=== PATIENT | male | born 1985 | race Caucasian/White ===

== ENCOUNTER 2023-01-10 04:07 | Emergency (ER) | payer SELFPAY ==
[2023-01-10] VITALS (15 sets, daily range): BP systolic 131–148; BP diastolic 93–116; PULSE 79–99; RESP 18; TEMP 36.1; O2SAT 96–100
--- NOTE | 2023-01-10 04:25 | CRLHL7_ITS ---
For Patients: As a result of the Cures Act, medical imaging exams and procedure reports are released immediately into your electronic medical record. You may view this report before your referring provider. If you have questions, please contact your health care provider. INDICATION: Facial injury. TECHNIQUE: CT maxillofacial without contrast. COMPARISON: None. FINDINGS: Facial bones: Bilateral comminuted nasal bone fractures and displaced fractures of the frontal processes of the maxillae. Associated asymmetrical superficial soft tissue hemorrhage and soft tissue emphysema. Nondisplaced fracture of the nasal septum (series 3; image 115). Orbits and globes: Unremarkable. Globes are intact. No sign of intraorbital hemorrhage or emphysema. Sinuses: Underpneumatized frontal sinuses. Round sclerotic focus in the midline of the frontal sinuses consistent with an osteoma. Right frontal recess opacification. Bilateral ethmoid, sphenoid and maxillary sinus mild mucosal thickening. The right anterior sphenoid sinus retention cyst. 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 Periapical lucencies of the right 2nd and 3rd mandibular molar is and left 1st mandibular molar are consistent with periodontitis. IMPRESSION: Bilateral comminuted nasal bone fractures and displaced fractures of the frontal processes of the maxillae. Associated asymmetrical superficial soft tissue hemorrhage and soft tissue emphysema. Nondisplaced fracture of the nasal septum (series 3; image 115). Incidental findings described above. Please note that all CT scans at this facility use dose modulation, iterative reconstruction, and/or weight-based dosing when appropriate to reduce radiation dose to as low as reasonably achievable. Dictated by Charles Rosa MD @ 01/10/2023 5:43:55 AM (Electronically Signed)
--- NOTE | 2023-01-10 04:25 | CRLHL7_ITS ---
For Patients: As a result of the Cures Act, medical imaging exams and procedure reports are released immediately into your electronic medical record. You may view this report before your referring provider. If you have questions, please contact your health care provider. INDICATION: Fall. TECHNIQUE: CT cervical spine without contrast. COMPARISON: None. FINDINGS: Vertebrae: Alignment is normal. There are no fractures or suspicious bony lesions. Small intraosseous pneumatocysts are noted in the C3 and C4 vertebral bodies. These findings are not considered to be clinically significant. Discs and facet joints: Disc spaces and facets are within normal limits. Extraspinal findings: Biapical emphysema. IMPRESSION: No acute traumatic injury of the cervical spine is identified. Please note that all CT scans at this facility use dose modulation, iterative reconstruction, and/or weight-based dosing when appropriate to reduce radiation dose to as low as reasonably achievable. Dictated by Charles Rosa MD @ 01/10/2023 5:48:49 AM (Electronically Signed)
--- NOTE | 2023-01-10 04:25 | CRLHL7_ITS ---
For Patients: As a result of the Cures Act, medical imaging exams and procedure reports are released immediately into your electronic medical record. You may view this report before your referring provider. If you have questions, please contact your health care provider. INDICATION: . TECHNIQUE: CT head without contrast. COMPARISON: None. FINDINGS: Incidental circumscribed lobulated focal fat in the suprasellar cistern is consistent with a dermoid. No intracranial hemorrhage, mass or hydrocephalus. No acute cortical infarct. Bilateral comminuted nasal bone fractures and displaced fractures of the frontal processes of the maxillae. Associated asymmetrical superficial soft tissue hemorrhage and soft tissue emphysema. Midline frontal sinus osteoma. Sphenoid sinus retention cyst. Mild mucosal thickening of the sphenoid sinus and bilateral maxillary sinuses. IMPRESSION: Bilateral comminuted nasal bone fractures and displaced fractures of the frontal processes of the maxillae. Associated asymmetrical superficial soft tissue hemorrhage and soft tissue emphysema. Incidental findings described above. Please note that all CT scans at this facility use dose modulation, iterative reconstruction, and/or weight-based dosing when appropriate to reduce radiation dose to as low as reasonably achievable. Dictated by Charles Rosa MD @ 01/10/2023 5:38:02 AM (Electronically Signed)
--- NOTE | 2023-01-10 04:30 | ED_ITS ---
HPI - General Adult General Chief complaint: Fall/Minor Trauma Stated complaint: fall, face laceration Time Seen by Provider: 01/10/23 04:20 Source: patient and family Mode of arrival: ambulatory Limitations: altered mental status (Intoxication) History of Present Illness HPI narrative: 37-year-old male presents the emergency department with significant other, brought in by private car. She woke at 3:00 a.m. to the sound of him moaning on the floor, conscious. They were drinking alcohol at home tonight. She believes that he fell and hit his head on the dresser but does not know what time. There was fresh blood around him. She notice a facial laceration. He is slurring his words but he had been drinking. She helped him up and brought him to the emergency department. He denies any other substances besides alcohol tonight. No fevers or recent illness. He does not remember what time he fell but does recall hitting his face on the dresser. He thinks he may have tripped over the cat or another object. He does not take any blood thinners or anticoagulants, no history of seizures. He notes pain in the neck, left mid face area. No other affected areas. Past medical history benign per his report, no major long-term health problems. No long-term medications or allergies. Alcohol intake tonight but no other drugs. ROS notable for the neck pain, facial injury and intoxication as above. Related Data Allergies Allergy/AdvReac Type Severity Reaction Status Date / Time Penicillins Allergy Severe Verified 01/10/23 04:34 [facility] Social History How often do you have a drink containing alcohol: 2-4 times a month AUDIT-C Alcohol total score: 2 Exam Const: Vital Signs, click to edit/add: Vital Signs - 24 hr 01/10/23 04:15 01/10/23 04:48 01/10/23 04:50 Temperature 97.0 F L Pulse Rate 83 89 Pulse Rate [Left P ulse Oximeter] 90 Respiratory Rate 18 Blood Pressure Blood Pressure [Ri ght Upper Arm] 148/116 H Pulse Oximetry 98 100 99 Oxygen Delivery Me thod Room Air 01/10/23 04:52 01/10/23 04:53 01/10/23 05:00 Temperature Pulse Rate 88 85 83 Pulse Rate [Left P ulse Oximeter] Respiratory Rate Blood Pressure 147/111 H Blood Pressure [Ri ght Upper Arm] Pulse Oximetry 99 99 100 Oxygen Delivery Me thod 01/10/23 05:02 01/10/23 05:10 01/10/23 05:12 Temperature Pulse Rate 79 99 86 Pulse Rate [Left P ulse Oximeter] Respiratory Rate Blood Pressure 141/111 H 142/103 H Blood Pressure [Ri ght Upper Arm] Pulse Oximetry 100 96 98 Oxygen Delivery Me thod 01/10/23 05:20 01/10/23 05:21 01/10/23 05:30 Temperature Pulse Rate 89 84 86 Pulse Rate [Left P ulse Oximeter] Respiratory Rate Blood Pressure 138/100 H Blood Pressure [Ri ght Upper Arm] Pulse Oximetry 98 99 98 Oxygen Delivery Me thod 01/10/23 05:32 01/10/23 05:40 01/10/23 05:41 Temperature Pulse Rate 88 87 87 Pulse Rate [Left P ulse Oximeter] Respiratory Rate Blood Pressure 133/93 H 131/94 H Blood Pressure [Ri ght Upper Arm] Pulse Oximetry 97 98 98 Oxygen Delivery Me thod Documenting provider has reviewed patient's vital signs: yes Other: Intoxicated, oriented to person place and situation though. GCS 15. Slight slurring of words, story is reproducible. Obvious swelling to left nasal labial fold and maxillary area. HENMT: Other: Facial swelling and laceration to left nose/maxillary area. Can open and close jaw normally. Fractured front tooth appears chronic. No signs of tongue biting. Normal oral mucosa. Mandible intact. No blood behind TMs. Eye: Common normals: PERRL, EOMs intact bilaterally and conjunctivae normal General eye: normal appearance of both eyes Conjunctiva: conjunctiva(e) normal Pupil: PERRL Neck & C-Spine: Other: C-collar placed. Does report tenderness along C3 and 4, right greater than left. No obvious deformity or step-off. Chest: Common normals: inspection of chest normal Resp: Common normals: normal respiratory effort, no use of accessory muscles and clear to auscultation bilaterally Effort & inspection: able to speak in complete sentences Auscultation: clear to auscultation bilaterally Cardio: Common normals: regular rate, regular rhythm, S1 normal heart sound, S2 normal heart sound and no murmurs Rate: regular rate Rhythm: regular rhythm Heart sounds: S1 normal and S2 normal GI: Common normals: Normal to inspection, nondistended, normoactive bowel sounds present, soft to palpation, non-tender, no hepatosplenomegaly and no masses Palpation: soft and no hepatosplenomegaly Back & Pelvis: Common normals: thoracic and lumbar spine normal to inspection and no thoracic nor lumbar tenderness Extremity: Common normals: normal to inspection, full ROM and normal capillary refill General: normal exam except as noted Neuro: Other: Speech slurred but GCS 15. Moves all extremities easily and symmetrically on command. No obvious deficit. Psych: Other: Cooperative, seems mildly intoxicated. Skin: Narrative: 6 cm curved laceration left nasal and ch [place] area Course Course ED Course: Concern with significant facial injury, potential cervical spine injury. Moving all extremities and not reporting any deficits is only somewhat reassuring in his intoxicated state. C-collar is placed. I do think that we can initially workup his trauma here. CT scan of the head, facial bone, cervical spine. Basic labs including alcohol level. Will withhold giving any pain medication until the CTs are back as I do not want to impair his neurological status. He will need repair of the laceration as part of his ED treatment as well, deferring to other more potentially dangerous potential injuries 1st. Reevaluation(s) Time of Reevaluation #1: 06:49 Reevaluation #1: Examined wound, signs of oozing noted. Superficial laceration is cleansed with Hibiclens did re-examine. Wound is on the left nasal bridge and nares area but is through the dermis only, not deeper tissues. It does not connect to the nasal cavity. No air movement or bubbling noted. Once it was washed, the actual length is only 3 cm. Originally I thought it was longer but I was seeing blood tracking deeply in the nasal labial fold which I thought was an extension of the laceration. It reapproximate very easily with gentle manipulation. Because of this I recommended Steri-Strips rather than suture for cosmetic outcome. He and significant other were agreeable to this. Procedure laceration repair: After cleansing with Hibiclens, proper examination of wound, ensuring that there was no evidence of foreign body, Steri-Strips were applied with good wound reapproximation. There is still some very mild oozing from 1 edge but almost completely hemostatic. Instructed on care. I also spoke with [facility], ENT provider, Dr. Crisostomo. He was kind enough to go over the report with me and agree that patient does not need transfer. He recommends outpatient ENT follow-up. Even with the small superficial laceration, it does not need antibiotic management. These recommendations were relayed to patient and his significant other. Patient is reporting that he has feeling fairly well. CT findings were reviewed. C-collar is removed. He can answer questions, is mentating well, moving all extremities easily and has no further questions at this time. Discussed that I would like him off of work for the next 3 days, discussed signs and symptoms of head injury and concussion. Rest. Tylenol and ibuprofen as needed for pain. Limited supply of hydrocodone will be given for more severe nocturnal pain only. His girlfriend is a nurse and can stay with him today to help monitor. All questions answered. Alarm symptoms reviewed. 20 minutes spent in critical care time today, trauma team activation. Vital Signs Vital signs: Initial Vital Signs Temperature 97.0 F L 01/10/23 04:15 Temperature Source Temporal Artery Scan 01/10/23 04:15 Pulse Rate 90 01/10/23 04:15 Pulse Rhythm Regular 01/10/23 04:15 Respiratory Rate 18 01/10/23 04:15 Blood Pressure 148/116 H 01/10/23 04:15 Blood Pressure Mean 126 H 01/10/23 04:15 Blood Pressure Position Semi-Fowlers 01/10/23 04:15 Pulse Oximetry 98 01/10/23 04:15 Oxygen Delivery Method Room Air 01/10/23 04:15 Vital Signs Temperature 97.0 F L 01/10/23 04:15 Pulse Rate 90 01/10/23 04:15 Respiratory Rate 18 01/10/23 04:15 Blood Pressure 148/116 H 01/10/23 04:15 Pulse Oximetry 98 01/10/23 04:15 Oxygen Delivery Method Room Air 01/10/23 04:15 Temperature 97.0 F L 01/10/23 04:15 Pulse Rate 87 01/10/23 05:41 Respiratory Rate 18 01/10/23 04:15 Blood Pressure 131/94 H 01/10/23 05:41 Pulse Oximetry 98 09/08/23 05:41 Oxygen Delivery Method Room Air 01/10/23 04:15 Medical Decision Making Lab Data Lab results reviewed: Yes I reviewed the patient's lab results Labs: Lab Results 01/10/23 Range/Units 04:25 WBC 5.91 (4.50-11.00) K/uL RBC 4.73 (4.30-5.90) m/uL Hgb 15.5 (13.5-17.5) gm/dL Hct 46.7 (37.0-53.0) % MCV 99 (80-100) fL MCH 33 (26-34) pg MCHC 33 (32-36) gm/dL RDW Coeff of Messi 12.3 (11.5-15.5) % Plt Count 203 (140-440) K/uL Neut % (Auto) 53.3 (42.0-72.0) % Lymph % (Auto) 32.3 (20-44) % [place] % (Auto) 6.9 (0.0-11.0) % Eos % (Auto) 6.8 (0.0-7.0) % Baso % (Auto) 0.5 (0.0-3.0) % Neut # (Auto) 3.15 (1.7-7.0) K/uL Lymph # (Auto) 1.91 (0.90-2.90) K/uL [place] # (Auto) 0.40 (0.00-0.90) K/UL Eos # (Auto) 0.40 (0.00-0.50) K/uL Baso # (Auto) 0.03 (0.00-0.30) K/uL Abs Immat Gran (auto) 0.01 (0.00-0.30) K/uL Imm/Tot Granulo (auto) 0.2 % Sodium 142 (135-149) mmol/L Potassium 3.8 (3.6-5.1) mmol/L Chloride 105 (96-114) mmol/L Carbon Dioxide 23 (20-32) mmol/L Anion Gap 14 (7-15) mEq/L BUN 14 (5-24) mg/dL Creatinine 0.8 (0.5-1.5) mg/dL Estimated GFR 117 ml/min Glucose 92 (60-115) mg/dL Calcium 9.9 (8.4-10.6) mg/dL Ethyl Alcohol 0.16 H (0.01-0.03) % POC Troponin I 0.00 L (0.01-0.04) ng/ml Imaging Data Facial CT: Attestation: I have reviewed the pertinent imaging results. My impression: Nasal and maxillary fracture Radiologist's impression: IMPRESSION: Bilateral comminuted nasal bone fractures and displaced fractures of the frontal processes of the maxillae. Associated asymmetrical superficial soft tissue hemorrhage and soft tissue emphysema. Incidental findings described above. CT scan - head: Attestation: I have reviewed the pertinent imaging results. My impression: No skull fracture head bleed. Facial fractures noted on facial CT Radiologist's impression: IMPRESSION: Bilateral comminuted nasal bone fractures and displaced fractures of the frontal processes of the maxillae. Associated asymmetrical superficial soft tissue hemorrhage and soft tissue emphysema. Incidental findings described above. CT- Other: Attestation: I have reviewed the pertinent imaging results. My impression: No cervical spine fracture Radiologist's impression: IMPRESSION: No acute traumatic injury of the cervical spine is identified. ECG Data Attestation: I personally reviewed and interpreted this ECG as follows: Prior ECG tracings: not available for review Interpretation: normal sinus rhythm, rate 87 normal axis. Good R-wave progression. No significant ST or T-wave abnormalities. Normal EKG Discharge Plan Discharge Clinical Impression: Closed fracture nasal bone, Concussion, Facial fracture Patient Disposition: Home w/ Parent or Adult Condition: Stable Instructions: Nasal Fracture (ED), Concussion (ED) Additional Instructions: As we discussed, you have fractures of your nose and cheek bone. These do not need to be set and you do not need antibiotics. I would like for you to follow- up with the ear nose and throat provider in a week or 2 to make sure things are healing properly. If things are not setting as they should, they will discuss surgery. Your likely to have symptoms of head injury evolve over the next 24 hours. This usually consists of dizziness, fatigue, headache, irritability and mental fogginess. It is important that you rest for the next 3 days. Because of the nasal fractures, You cannot blow your nose for at least a week. If you are still not feeling back to baseline by Friday, I would recommend a follow-up in the clinic and not going to work. The ear nose and throat clinic office will call you to schedule a follow-up. Come back to the emergency department and or call 911 if you experience loss of consciousness, seizures, persistent vomiting. Someone should stay with you today to help monitor your symptoms. For pain take Tylenol 1000 mg every 6 hours as needed and or ibuprofen 600 mg every 6 hours as needed. I will also give you a limited supply of hydrocodone to use if the pain is severe but try to use these sparingly or even not at all. It is okay to gently apply ice. The nasal wound may continue to ooze slightly but should not have heavy bleeding. Activity Level: Light activity Discharge Diet: Regular Follow Up/Referrals: Provider,Not a Local [Primary Care Provider] - Stand Alone Forms: [employer] Info Instructions
[2023-01-10 04:34] LABS: Basophils Absolute Auto 0.03 K/uL (0.00-0.30); Basophils Percent Auto 0.5 % (0.0-3.0); Eosinophils Percent Auto 6.8 % (0.0-7.0); Hematocrit 46.7 % (37.0-53.0); Hemoglobin* 15.5 gm/dL (13.5-17.5); Immature Granulocytes Abs Auto 0.01 K/uL (0.00-0.30); Immature Granulocytes Pct Auto 0.2 %; Lymphocytes Absolute Auto 1.91 K/uL (0.90-2.90); Lymphocytes Percent Auto 32.3 % (20-44); Mean Corpuscular HGB Conc 33 gm/dL (32-36); Mean Corpuscular Hemoglobin 33 pg (26-34); Mean Corpuscular Volume 99 fL (80-100); Monocytes Percent Auto 6.9 % (0.0-11.0); Neutrophils Absolute Auto 3.15 K/uL (1.7-7.0); Neutrophils Percent Auto 53.3 % (42.0-72.0); Platelet Count* 203 K/uL (140-440); RDW Coefficient of Variation % 12.3 % (11.5-15.5); Red Blood Count 4.73 m/uL (4.30-5.90); White Blood Count* 5.91 K/uL (4.50-11.00)
[2023-01-10 04:35] LABS: Slide Review Reflex No
[2023-01-10 04:55] LABS: Chloride* 105 mmol/L (96-114); Potassium* 3.8 mmol/L (3.6-5.1); Sodium* 142 mmol/L (135-149)
[2023-01-10 04:58] LABS: Blood Urea Nitrogen* 14 mg/dL (5-24); Carbon Dioxide* 23 mmol/L (20-32); Creatinine* 0.8 mg/dL (0.5-1.5); Estimated Glomerular Filt Rate 117 ml/min; Ethanol* 0.16 % (0.01-0.03)
[2023-01-10 04:59] LABS: Calcium* 9.9 mg/dL (8.4-10.6); Glucose* 92 mg/dL (60-115)
[2023-01-10 05:00] LABS: Anion Gap 14 mEq/L (7-15)
[2023-01-10] MEDS: lidocaine HCL 2 % MULTIDOSE 20 ML VIAL INJECTION (05:38)
[2023-01-10] MEDS: HYDROCODONE-ACETAMIN 5-325 MG 1 TAB PO (06:17)
== END 2023-01-10 07:03 | disposition home or self-care (01) ==
PROVIDERS: Emergency Provider Family Medicine
DX: S02.2XXB Fracture of nasal bones, initial encounter for open fracture (principal); S06.0X0A Concussion without loss of consciousness, initial encounter; W19.XXXA Unspecified fall, initial encounter
CPT/HCPCS: 36415; 70450; 70486; 72125; 80048; 80306; 82077; 84484; 85025; 93005; 99284; 99285; 99291; A9270

== ENCOUNTER 2024-02-04 21:52 | Emergency (ER) | payer BC, SELFPAY ==
[2024-02-04 22:12] VITALS: BP 172/89; PULSE 89; RESP 20; TEMP 36.6; O2SAT 99; BMI 24.8
--- NOTE | 2024-02-04 22:20 | CRLHL7_ITS ---
For Patients: As a result of the Cures Act, medical imaging exams and procedure reports are released immediately into your electronic medical record. You may view this report before your referring provider. If you have questions, please contact your health care provider. Indication: Shoulder injury. Technique: Left shoulder 3 views. Comparison: None. Findings: Bones: Alignment is normal. No fractures or bone lesions. Joint spaces: Unremarkable. Soft tissues: Unremarkable. Impression: No sign of acute injury. Dictated by Vishal Barriga MD @ 02/04/2024 11:10:20 PM (Electronically Signed)
--- NOTE | 2024-02-04 22:20 | ED.GENADULT ---
HPI - General Adult General Chief complaint: Shoulder Injury/Pain Stated complaint: Shoulder injury Time Seen by Provider: 02/04/24 22:17 History of Present Illness HPI narrative: This 38-year-old male comes in with an injury to his left shoulder. This occurred a couple days ago as he states that he bumped his shoulder on a hard object. The impact came laterally to his shoulder any now has pain along the distal portion of his clavicle. He states that he does have range of motion but it is painful. He does not report any other injury. Related Data Home Medications ?Medication ?Instructions ?Recorded ?Confirmed dextroamphetamine-amphetamine 20 1 tab PO 3XD 02/04/24 02/04/24 mg tablet Allergies Allergy/AdvReac Type Severity Reaction Status Date / Time Penicillins Allergy Intermediate Hives Verified 02/04/24 22:14 Review of Systems Status of ROS: Reports: 10 or more systems reviewed and unremarkable except as noted in History and below Narrative: Constitutional: No fevers, no weight gain or loss. Eyes: No discharge. No vision changes. HENT: No congestion, no sore throat, no ear pain. Cardiovascular: No chest pain, no palpitations. Respiratory: No shortness of breath, no wheezes, no cough. Gastrointestinal: No abdominal pain, no vomiting, no diarrhea. Genitourinary: No dysuria, no hematuria. Musculoskeletal: Left shoulder injury as described above. Skin: No rashes, no pruritis. Neurological: No dizziness, weakness, sensory change, speech change. Endo/Heme/Allergies: No bruising or bleeding. No polydipsia. Pysch: no suicidality, no anxiety, no insomnia. All other systems reviewed and are negative. [facility] Medical History (Updated 02/04/24 @ 23:20 by Mohinder Ash MD) ADHD ?F90.9 - Attention-deficit hyperactivity disorder, unspecified type (ICD-10) Surgical History (Updated 02/04/24 @ 22:24 by Jermaine Arreguin RN) No significant past surgical history Social History Smoking Status: Never smoker Second hand tobacco smoke exposure: No How often do you have a drink containing alcohol: 2-4 times a month AUDIT-C Alcohol total score: 2 Non-prescribed substance use: denies use Exam Narrative: Exam Narrative: Constitutional: Well-developed, well-nourished, no acute distress. HEENT: Normocephalic, atraumatic. Neck: Normal range of motion. Nontender. Supple. Heart: Regular. No murmurs. Normal rate. Intact distal pulses. Lungs: Clear to auscultation. No chest discomfort. No wheezes, rhonchi, or rales. Abdomen: Normal bowel sounds. Nontender. No rebound tenderness. Genitalia: Deferred. Back: No midline tenderness. Normal range of motion. Extremities: Left shoulder has diffuse pain with no obvious deformity or swelling. Range of motion is somewhat limited due to pain. Skin: Intact. No rash. Warm. No erythema or pallor. Neurologic: No altered sensation. No weakness. Alert and oriented. Psychiatric: No suicidality. No anxiety or depression. No insomnia. Nursing notes and vitals signs are reviewed. Const: Vital Signs, click to edit/add: Vital Signs - 24 hr 02/04/24 22:12 Temperature 97.9 F Pulse Rate [Right Pulse Oximeter] 89 Respiratory Rate 20 Blood Pressure [Ri ght Upper Arm] 172/89 H Pulse Oximetry 99 Oxygen Delivery Me thod Room Air Course Vital Signs Vital signs: Initial Vital Signs Temperature 97.9 F 02/04/24 22:12 Temperature Source Temporal Artery Scan 02/04/24 22:12 Pulse Rate 89 02/04/24 22:12 Respiratory Rate 20 02/04/24 22:12 Blood Pressure 172/89 H 02/04/24 22:12 Blood Pressure Mean 116 H 02/04/24 22:12 Blood Pressure Position Sitting 02/04/24 22:12 Pulse Oximetry 99 02/04/24 22:12 Oxygen Delivery Method Room Air 02/04/24 22:12 Vital Signs Temperature 97.9 F 02/04/24 22:12 Pulse Rate 89 02/04/24 22:12 Respiratory Rate 20 02/04/24 22:12 Blood Pressure 172/89 H 02/04/24 22:12 Pulse Oximetry 99 02/04/24 22:12 Oxygen Delivery Method Room Air 02/04/24 22:12 Temperature 97.9 F 02/04/24 22:12 Pulse Rate 89 02/04/24 22:12 Respiratory Rate 20 02/04/24 22:12 Blood Pressure 172/89 H 02/04/24 22:12 Pulse Oximetry 99 02/04/24 22:12 Oxygen Delivery Method Room Air 02/04/24 22:12 Medical Decision Making MDM Narrative Medical decision making narrative: This patient comes in for evaluation injury to his left shoulder. X-ray images show no sign of fracture or malalignment. The patient received a sling and a and [employer] prescription for Toradol. He is encouraged to increase activity as tolerated. I also provided to return to work note. Discharge Plan Discharge Clinical Impression: Injury of shoulder, left Patient Disposition: Home, Self-Care Condition: Unchanged Additional Instructions: Wear sling as needed and increase activity as tolerated. Use medication as needed and directed also. Follow up with MD return if worsening. Prescriptions: No Action dextroamphetamine-amphetamine 20 mg tablet 1 tab PO 3XD Follow Up/Referrals: Provider,Not a Local [Primary Care Provider] - Stand Alone Forms: [employer] Info Instructions
--- OUTSIDE RECORDS SUMMARY | 2024-02-04 22:30 | XMS_ITS | Clinical Summary ---
Author Organization [facility] Address [address] [place] [address] Care Team Providers Care Cns Name Role Phone No Ref-Primary, Physician Primary Care Provider Allergies Active Allergy Reactions Criticality Noted Date Comments Penicillins 06/19/2012 Medications Medication Sig Dispensed Refills Start Date End Date Status naproxen (NAPROSYN) 500 MG tabletIndications:Ri ght foot pain Take 1 tablet (500 mg) by mouth 2 times daily as needed for moderate pain 30 tablet 0 09/12/2015 Active Lidocaine (LIDOCARE) 4 % Patch Apply one patch to lower back. Leave on for 12 hours. Then remove and keep off for 12 hours before applying another one. 30 patch 05/05/2018 Active Active Problems Problem Noted Date Diagnosed Date CARDIOVASCULAR SCREENING; LDL GOAL LESS THAN 160 08/10/2015 Seasonal allergic rhinitis 08/10/2015 Sleep difficulties 08/10/2015 ADD (attention deficit disorder) 08/10/2015 Overview: Sees Dr. Aguilar Service for medication and control Status post laparoscopic appendectomy 06/20/2012 Acute appendicitis 06/19/2012 Overview: Problem list name updated by automated process. Provider to review and confirm [employer] Update utility Family History Medical History Relation Comments Anxiety Disorder Mother Asthma Mother Depression Mother Hypertension Mother Mental Illness Mother Relation Status Comments Mother Social History Tobacco Use Types Packs/Day Years Used Date Smoking Tobacco: Every Day Cigarettes 1 10 Alcohol Use Standard Drinks/Week Comments Yes 0 (1 standard drink = 0.6 oz pur e alcohol) PHQ-2 Answer Date Recorded PHQ-2 Score 0 05/17/2018 Adolescent Education Answer Date Record ed Getting School Help Needed Not on file 02/09 Sex and Gender Information Value Date Recorded Sex Assigned at Not on file Gender Identity Not on file Sexual Orientation Not on file Last Filed Vital Signs Vital Sign Reading Time Taken Comments Blood Pressure 147/98 06/23/2019 10:36 AM [employer] EMPLOYEE Pulse 79 06/23/2019 10:36 AM [employer] EMPLOYEE Temperature 36.8 ??C (98.2 ??F) 06/23/2019 9:12 AM CS T Respiratory Rate 16 06/23/2019 9:12 AM [employer] EMPLOYEE Oxygen Saturation 99% 06/23/2019 10:31 AM [employer] EMPLOYEE Inhaled Oxygen Concentration - - Weight 79.4 kg (175 lb) 06/23/2019 9:12 AM [employer] EMPLOYEE Height 180.3 cm (5' 11) 09/12/2015 12:01 PM CDT Body Mass Index 24.41 09/12/2015 12:01 PM CDT Plan of Treatment Not on file Advance Directives For more information, please contact: [phone] * Full Code (Latest Code Status on File) Date Activated Date Inactivated Comments 06/19/2012 9:58 PM 06/20/2012 1:00 PM Care Teams Cns Relationship Specialty Start Date End Date No Ref-Primary, Physician PCP - General 06/19/12
--- OUTSIDE RECORDS SUMMARY | 2024-02-04 22:30 | XMS_ITS | Referral Summary ---
Author Organization [facility] Address [address] 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 Pulse 79 06/23/2019 10:36 AM SURVEYOR INSTRUMENT ASSISTANT Temperature 36.8 ??C (98.2 ??F) 06/23/2019 9:12 AM CS T Respiratory Rate 16 06/23/2019 9:12 AM SURVEYOR INSTRUMENT ASSISTANT Oxygen Saturation 99% 06/23/2019 10:31 AM SURVEYOR INSTRUMENT ASSISTANT Inhaled Oxygen Concentration - - Weight 79.4 kg (175 lb) 06/23/2019 9:12 AM SURVEYOR INSTRUMENT ASSISTANT Height 180.3 cm (5' 11) 09/12/2015 12:01 PM CDT Body Mass Index 24.41 09/12/2015 12:01 PM CDT Plan of Treatment Not on file Advance Directives For more information, please contact: [phone] * Full Code (Latest Code Status on File) Date Activated Date Inactivated Comments 06/19/2012 9:58 PM 06/20/2012 1:00 PM Care Teams Ems Director Relationship Specialty Start Date End Date No Ref-Primary, Physician PCP - General 06/19/12
== END 2024-02-04 23:30 | disposition home or self-care (01) ==
PROVIDERS: Emergency Provider Emergency Medicine Emergency Medical Services
DX: M25.512 Pain in left shoulder (principal); W22.8XXA Striking against or struck by other objects, initial encounter
CPT/HCPCS: 73030; 99283; 99284